=== PATIENT | female | born 1960 ===

== ENCOUNTER 2017-10-28 14:20 | Emergency (ER) | payer MEDICARE, MEDICAID ==
[2017-10-28 14:21] VITALS: BMI 26.4
--- NOTE | 2017-10-28 14:52 | C.PDOC ---
History Of Present Illness 57 y/o female presents to ED with complaints of left calf pain for 5 days. Patient denies injury, numbness, weakness or any other complaints at this time. Time Seen by Provider: 10/28/17 14:48 Chief Complaint (Nursing): Lower Extremity Problem/Injury History Per: Patient History/Exam Limitations: no limitations Onset/Duration Of Symptoms: Days Current Symptoms Are (Timing): Still Present Past Medical History Reviewed: Historical Data, Nursing Documentation, Vital Signs Vital Signs: Last Vital Signs Temp 97.7 F 10/28/17 14:39 Pulse 75 10/28/17 14:39 Resp 20 10/28/17 14:39 BP 133/84 10/28/17 14:39 Pulse Ox 97 10/28/17 15:55 - Medical History PMH: HTN Other PMH: Brain aneurysm embolization Surgical History: No Surg Hx - [facility] Procedures ENDOSC POLYPECTOMY OF LG INTEST (04/26/14) Family History: States: No Known Family Hx - Social History Hx Tobacco Use: No Hx Alcohol Use: No Hx Substance Use: No - Immunization History Hx Tetanus Toxoid Vaccination: No Hx Influenza Vaccination: No Hx Pneumococcal Vaccination: No Review Of Systems Constitutional: Negative for: Fever, Chills Gastrointestinal: Negative for: Nausea, Vomiting Musculoskeletal: Positive for: Leg Pain Skin: Negative for: Rash Neurological: Negative for: Weakness, Numbness Physical Exam - Physical Exam Appears: Non-toxic, No Acute Distress Skin: Normal Color, Warm, Dry, No Rash Head: Atraumatic, Normacephalic Eye(s): bilateral: Normal Inspection Oral Mucosa: Moist Neck: Normal ROM, Supple Chest: Symmetrical Cardiovascular: Rhythm Regular Respiratory: Normal Breath Sounds, No Rales, No Rhonchi, No Wheezing Gastrointestinal/Abdominal: Soft, No Tenderness, No Guarding, No Rebound Extremity: Calf Tenderness, Capillary Refill (<2 seconds), No Swelling Extremity: Bilateral: Normal ROM Pulses: Left Dorsalis Pedis: Normal, Right Dorsalis Pedis: Normal Neurological/Psych: Oriented x3, Normal Motor, Normal Sensation ED Course And Treatment - Laboratory Results Result Diagrams: 10/28/17 15:53 10/28/17 15:53 Lab Interpretation: Normal Urine POC: Negative O2 Sat by Pulse Oximetry: 97 (RA) Pulse Ox Interpretation: Normal Progress Note: Case discussed with PMD Dr Tate who reported that patient has a history of cerebral aneurysm and embolization. Dr Paul Grossman is patients neurosurgeon and call placed to office multiple times. Case discussed with Pa covering for Dr Grossman and reports that anticoagulation is appropriate but will discuss with neurosurgeon and contact us with advise for anticoagulation Reassessment Condition: Unchanged Medical Decision Making Medical Decision Making: Plan: Doppler Doppler (+) DVT left peroneal vein [address] Tate and agrees with lovenox 100 mg SQ tonight and follow up tomorrow at office Dr Tate agrees to call Dr Turk's office tomorrow to discuss appropriate anticoagulation and will arrange for follow up treatment Disposition Discussed With Dr.: Judah Tate Doctor Will See Patient In The: Office Counseled Patient/Family Regarding: Studies Performed, Diagnosis, Need For Followup - Disposition Referrals: Judah Tate MD [Staff Provider] - Disposition: HOME/ ROUTINE Disposition Time: 18:10 Condition: STABLE Additional Instructions: Follow up with Dr Tate tomorrow Call office tomorrow at 9:30 am for further evaluation and treatment of DVT Instructions: Deep Venous Thrombosis (ED) Forms: [employer] [facility] (Estonian) - POA Present On Arrival: None - Clinical Impression Clinical Impression: Deep venous thrombosis of lower extremity - 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 - Scribe Statement The provider has reviewed the documentation as recorded by the Kelsi Colon All medical record entries made by the Kelsi were at my direction and personally dictated by me. I have reviewed the chart and agree that the record accurately reflects my personal performance of the history, physical exam, medical decision making, and the department course for this patient. I have also personally directed, reviewed, and agree with the discharge instructions and disposition.
[2017-10-28 16:00] LABS: BASO % 0.6 % (0.0-2.0); EOS # 0.1 K/uL (0.0-0.7); EOS % 1.2 % (0.0-4.0); HEMATOCRIT 44.4 % (34.0-47.0); LYMPH # 2.8 K/uL (1.0-4.3); LYMPH % 45.4 % (20.0-40.0); MEAN CELL VOLUME 94.1 fL (81.0-99.0); MEAN CORPUSCULAR HEMOGLOBIN 31.5 pg (27.0-31.0); MEAN CORPUSCULAR HGB CONC 33.5 g/dL (33.0-37.0); MEAN PLATELET VOLUME 7.5 fL (7.2-11.7); MONO # 0.5 K/uL (0.0-0.8); MONO % 7.9 % (0.0-10.0); NRBC % 0.1 % (0.0-2.0); RED CELL DISTRIBUTION WIDTH 13.1 % (11.5-14.5); WHITE BLOOD COUNT 6.3 K/uL (4.8-10.8)
[2017-10-28 16:28] LABS: RBC URINE 6 /hpf (0-3); URINE BILIRUBIN NEGATIVE (NEGATIVE); URINE BLOOD NEGATIVE (NEGATIVE); URINE COLOR Yellow (YELLOW); URINE GLUCOSE (UA) NORMAL (Normal); URINE KETONE NEGATIVE (NEGATIVE); URINE LEUKOCYTE ESTERASE NEG Leu/uL (Negative); URINE PROTEIN NEGATIVE (NEGATIVE); URINE UROBILINOGEN NORMAL mg/dL (0.2-1.0); WBC URINE 1 /hpf (0-5)
[2017-10-28 16:30] LABS: ALB/GLOB RATIO 1.1 (1.0-2.1); ALKALINE PHOSPHATASE 56 U/L (38-126); ALT/SGPT 50 U/L (9-52); AST/SGOT 21 U/L (14-36); BILIRUBIN,TOTAL 0.4 mg/dL (0.2-1.3); BLOOD UREA NITROGEN 12 mg/dL (7-17); CALCIUM 8.4 mg/dl (8.6-10.4); CARBON DIOXIDE 23 mmol/L (22-30); CHLORIDE 107 mmol/L (98-107); GFR AFRICAN-AMERICAN > 60; GLUCOSE,RANDOM 93 mg/dL (65-105); POTASSIUM 3.9 mmol/L (3.6-5.2); SODIUM 137 mmol/L (132-148); TOTAL PROTEIN 8.2 g/dL (6.3-8.3)
[2017-10-28] MEDS ORDERED: Enoxaparin 40 mg Syringe SC STA (17:57)
[2017-10-28] MEDS ORDERED: Enoxaparin 100 mg Syringe ONE (18:21)
[2017-10-28 18:37] VITALS: BP 123/85; PULSE 66; RESP 18; TEMP 97.9; O2SAT 98
--- NOTE | 2017-10-29 11:20 | VASCLAB ---
PROCEDURE: Lower Extremity Venous Duplex Exam. HISTORY: pain PRIORS: None. TECHNIQUE: Bilateral common femoral, femoral, popliteal and posterior tibial, peroneal and great saphenous veins were evaluated. Flow was assessed with color Doppler, compressibility, assessment of phasic flow and augmentation response. Report prepared by CONRADO Cronin, RVT FINDINGS: RIGHT: 1. Common Femoral Vein: 1.1. Compressibility - Fully compressible: Thrombus - None : Flow - Phasic: Augmentation -Normal: Reflux - None. 2. Femoral Vein: 2.1. Compressibility - Fully compressible: Thrombus - None : Flow - Phasic: Augmentation -Normal: Reflux - None. 3. Popliteal Vein: 3.1. Compressibility - Fully compressible: Thrombus - None : Flow - Phasic: Augmentation -Normal: Reflux - None. 4. Posterior Tibial Vein: 4.1. Compressibility - Fully compressible: Thrombus - None: Flow - Phasic: Augmentation -Normal: Reflux - None. 5. Peroneal Vein: 5.1. Compressibility - Fully compressible: Thrombus - None: Flow - Phasic: Augmentation -Normal: Reflux - None. 6. Great Saphenous Vein: 6.1. Compressibility - Fully compressible: Thrombus - None: Flow - Phasic: Augmentation - Normal: Reflux - None. LEFT: 1. Common Femoral Vein: 1.1. Compressibility - Fully compressible: Thrombus - None: Flow - Phasic: Augmentation -Normal: Reflux - None. 2. Femoral Vein: 2.1. Compressibility - Fully compressible: Thrombus - None: Flow - Phasic: Augmentation -Normal: Reflux - None. 3. Popliteal Vein: 3.1. Compressibility - Fully compressible: Thrombus - None : Flow - Phasic: Augmentation -Normal: Reflux - None. 4. Posterior Tibial Vein: 4.1. Compressibility - Fully compressible: Thrombus - None: Flow - Phasic: Augmentation -Normal: Reflux - None. 5. Peroneal Vein: 5.1. Compressibility - Partial: Thrombus - Acute: Flow - Reduced : Augmentation -Reduced: Reflux - None. 6. Great Saphenous Vein: 6.1. Compressibility - Fully compressible: Thrombus - None: Flow - Phasic: Augmentation - Normal: Reflux - None. OTHER FINDINGS: TRE Hernandez notified about the findings. IMPRESSION: Right: No evidence of deep or superficial vein thrombosis of the right lower extremity. Normal valve function noted of the right side. Left: Acute thrombosis of the left peroneal vein with severe reduction of the venous return.
== END 2017-10-28 18:37 | disposition home or self-care (01) ==
LOC: C.ER 14:20
DX: I82.492 Acute embolism and thrombosis of other specified deep vein of left lower extremity (principal); I10 Essential (primary) hypertension
CPT/HCPCS: 80053; 81001; 85025; 85610; 93970; 96372; 99284; J1650

== ENCOUNTER 2018-08-04 08:46 | Emergency (ER) | payer MEDICARE, MEDICAID ==
[2018-08-04 08:46] VITALS: BMI 26.4
--- NOTE | 2018-08-04 09:40 | C.PDOC ---
History Of Present Illness 58-year-old female, presents to the emergency department with complaints of left calf pain ongoing for the past four days. Patient has a Hx of DVT. Denies nausea/vomiting, chest pain, shortness of breath, nausea/vomiting, trauma/fall or any other associated symptoms. No other complaints at this time. Time Seen by Provider: 08/04/18 09:02 Chief Complaint (Nursing): Lower Extremity Problem/Injury History Per: Patient History/Exam Limitations: no limitations Current Symptoms Are (Timing): Still Present Severity: Moderate Past Medical History Reviewed: Historical Data, Nursing Documentation, Vital Signs Vital Signs: Last Vital Signs Temp 98.4 F 08/04/18 08:51 Pulse 72 08/04/18 08:51 Resp 20 08/04/18 08:51 BP 118/82 08/04/18 08:51 Pulse Ox 99 08/04/18 09:51 - Medical History PMH: Deep Vein Thrombosis (2017), HTN Denies: Chronic Kidney Disease - [facility] Procedures ENDOSC POLYPECTOMY OF LG INTEST (04/26/14) Family History: States: No Known Family Hx - Social History Hx Tobacco Use: No Hx Alcohol Use: No Hx Substance Use: No - Immunization History Hx Tetanus Toxoid Vaccination: No Hx Influenza Vaccination: No Hx Pneumococcal Vaccination: No Review Of Systems Constitutional: Negative for: Fever Cardiovascular: Negative for: Chest Pain Respiratory: Negative for: Shortness of Breath Skin: Negative for: Rash Neurological: Negative for: Weakness, Numbness Physical Exam - Physical Exam Appears: Non-toxic, No Acute Distress Skin: Warm, Dry, No Rash Head: Atraumatic, Normacephalic Eye(s): bilateral: Normal Inspection Nose: Normal Oral Mucosa: Moist Lips: Normal Appearing Neck: Normal ROM Chest: Symmetrical Cardiovascular: Rhythm Regular, No Murmur Respiratory: Normal Breath Sounds, No Decreased Breath Sounds, No Accessory Muscle Use Extremity: Normal ROM, No Pedal Edema, Calf Tenderness (left), No Deformity, No Swelling, Other (No infectious process, no cellulitis, no warmth) Pulses: Left Dorsalis Pedis: Normal, Right Dorsalis Pedis: Normal Neurological/Psych: Oriented x3, Normal Speech ED Course And Treatment O2 Sat by Pulse Oximetry: 99 Pulse Ox Interpretation: Normal (RA) Medical Decision Making Medical Decision Making: Plan: * Venous US * Ibuprofen * Reassess and Disposition * * calf pain - negative doppler study. Discharged home to follow up with pmd within 2 days Disposition - Disposition Referrals: Juadh Tate MD [Staff Provider] - Disposition: HOME/ ROUTINE Disposition Time: 10:34 Condition: STABLE Additional Instructions: follow up with your doctor within 2 days call to make an appointment take pain medication as needed return to ER if symptoms worsens or progress Prescriptions: Naproxen [Naprosyn] 500 mg PO BID PRN #16 tab PRN Reason: Pain, Moderate (4-7) Instructions: Muscle Strain Forms: [facility] (Spanish), General Discharge Instructions, Work Excuse - Clinical Impression Clinical Impression: Strain of calf muscle - Scribe Statement The provider has reviewed the documentation as recorded by the Scribe (Giovanni Gonzalez) Provider Attestation: All medical record entries made by the Scribe were at my direction and personally dictated by me. I have reviewed the chart and agree that the record accurately reflects my personal performance of the history, physical exam, medical decision making, and the department course for this patient. I have also personally directed, reviewed, and agree with the discharge instructions and disposition.
[2018-08-04 10:44] VITALS: BP 136/79; PULSE 69; RESP 18; TEMP 98; O2SAT 98
--- NOTE | 2018-08-05 16:30 | VASCLAB ---
Date of service: 08/04/2018 PROCEDURE: Left Lower Extremity Venous Duplex Exam. HISTORY: Left calf pain PRIORS: 10/2017, abnormal. TECHNIQUE: Left common femoral, femoral, popliteal and posterior tibial, peroneal and great saphenous veins were evaluated. Flow was assessed with color Doppler, compressibility, assessment of phasic flow and augmentation response. Report prepared by ART Lugo FINDINGS: LEFT: 1. Common Femoral Vein: 1.1. Compressibility - Fully compressible: Thrombus - None : Flow - Phasic: Augmentation -Normal: Reflux - None. 2. Femoral Vein: 2.1. Compressibility - Fully compressible: Thrombus - None: Flow - Phasic: Augmentation -Normal: Reflux - None. 3. Popliteal Vein: 3.1. Compressibility - Fully compressible: Thrombus - None: Flow - Phasic: Augmentation -Normal: Reflux - None. 4. Posterior Tibial Vein: 4.1. Compressibility - Fully compressible: Thrombus - None: Flow - Phasic: Augmentation -Normal: Reflux - None. 5. Peroneal Vein: 5.1. Compressibility - Fully compressible: Thrombus - None: Flow - Phasic: Augmentation -Normal: Reflux - None. 6. Great Saphenous Vein: 6.1. Compressibility - Fully compressible: Thrombus - None: Flow - Phasic: Augmentation - Normal: Reflux - Moderate >2.71s OTHER FINDINGS: Normal venous flow noted in the RIGHT common femoral vein. IMPRESSION: 1. No evidence of deep or superficial vein thrombosis of the left lower extremity with excellent venous flow. 2. Valvular incompetence noted of the left great saphenous vein.
== END 2018-08-04 10:44 | disposition home or self-care (01) ==
LOC: C.ER 08:46
DX: S86.912A Strain of unspecified muscle(s) and tendon(s) at lower leg level, left leg, initial encounter (principal); X58.XXXA Exposure to other specified factors, initial encounter

== ENCOUNTER 2018-12-01 06:23 | Day surgery (SDC) | payer MEDICARE, MEDICAID ==
[2018-11-30 09:45] VITALS: BMI 27.1
[2018-12-01 06:51] VITALS: TEMP 97.1; O2SAT 100
--- NOTE | 2018-12-01 08:12 | CP.SDSHP ---
Same Day Surgery H & P - History Proposed Procedure: colonoscopy Pre-Op Diagnosis: history of colon polyps - Previous Medical/Surgical History Cardiac: Hypertension Endocrine/Metabolic: Diabetes Previous Surgical History: cerebral aneurysm - Allergies Allergies: Allergies iodine Allergy (Verified 08/04/18 08:55) SWELLING - Current Medications Current Medications: reviewed, per reconciliation - Physical Exam General Appearance: wdwn nad Vital Signs: Vital Signs 12/01/18 06:45 Temperature 97.1 F L Pulse Rate 62 Respiratory 19 Rate Blood Pressure 124/79 O2 Sat by Pulse 100 Oximetry Mental Status: Alert & Oriented x3 Heart: WNL Lungs: WNL GI: WNL - {Optional Preform as Required} Abdomen: WNL - Impression Impression: history of colon polyps Pt. Evaluated Today:Candidate for Anesthesia & Procedure: Yes - Date & Time Date: 12/01/18 Time: 08:12 Short Stay Discharge - Short Stay Discharge Admitting Diagnosis/Reason for Visit: H/O COLONIC POLYPS Disposition: HOME/ ROUTINE
[2018-12-01] MEDS ORDERED: Propofol 10 mg/ml Inj (20 ML) ONE ×2 (08:14)
[2018-12-01 09:26] VITALS: BP 117/68; PULSE 71; RESP 16
== END 2018-12-01 09:55 | disposition home or self-care (01) ==
LOC: C.ENDO 06:23
PROVIDERS: ATTEND Internal Medicine Gastroenterology
DX: Z86.010 Personal history of colon polyps (principal); D12.3 Benign neoplasm of transverse colon; K64.8 Other hemorrhoids; Z83.71 Family history of colonic polyps
CPT/HCPCS: 45380; 82948; 88305; J2001; J2704

== ENCOUNTER 2019-01-19 06:54 | Day surgery (SDC) | payer MEDICARE, MEDICAID ==
[2018-11-30 09:45] VITALS: BMI 27.1
[2019-01-19] MEDS ORDERED: Lactated Ringer's 500 ML IV SCH (07:45)
[2019-01-19] MEDS ORDERED: Propofol 10 mg/ml Inj (20 ML) ONE (07:46)
[2019-01-19] MEDS ORDERED: Lactated Ringer's 1,000 ML IV ONE (08:27)
--- NOTE | 2019-01-19 08:28 | CP.SDSHP ---
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 Evaluated Today:Candidate for Anesthesia & Procedure: Yes - Date & Time Date: 01/19/19 Time: 08:27 Short Stay Discharge - Short Stay Discharge Admitting Diagnosis/Reason for Visit: DYSPEPSIA Disposition: HOME/ ROUTINE
[2019-01-19 10:27] VITALS: BP 119/64; PULSE 70; RESP 16; TEMP 97.8; O2SAT 100
== END 2019-01-19 09:26 | disposition home or self-care (01) ==
LOC: C.ENDO 06:54
PROVIDERS: ATTEND Internal Medicine Gastroenterology
DX: K30 Functional dyspepsia (principal); K29.50 Unspecified chronic gastritis without bleeding; E11.9 Type 2 diabetes mellitus without complications; I10 Essential (primary) hypertension; Z98.2 Presence of cerebrospinal fluid drainage device
CPT/HCPCS: 43239; 82948; 88305; 88342; J2001; J2704; J3010; J7120